=== PATIENT | male | born 1955 | race African-American/Black ===

== ENCOUNTER 2022-02-09 21:04 | Emergency (ER) | payer MEDICAID, OTHER ==
[~2022-02-09] VITALS: Ht 180.3 cm; Wt 123.3 kg
[~2022-02-09 21:04] MED LIST: AMLODIPINE; ASPIRIN; LOP25 GT; LOSARTAN; PRAV40TA PO
[2022-02-09 22:01] VITALS: BP 131/79
== END 2022-02-10 04:06 | disposition left against medical advice (07) ==
LOC: ER 21:04
DX: Z53.21 Procedure and treatment not carried out due to patient leaving prior to being seen by health care provider (principal)